=== PATIENT | male | born 1945 | race Caucasian/White ===

== ENCOUNTER 2016-11-19 18:36 | Emergency (ER) | payer MEDICARE, OTHER ==
[~2016-11-19] VITALS: Ht 185.4 cm; Wt 123.4 kg
[2016-11-19] MEDS: ACETAMINOPHEN 325 MG TABLET PO ONE (19:00)
[2016-11-19] MEDS ORDERED: VANCOMYCIN PER PHARMACY MC ONE (19:00)
[2016-11-19] MEDS ORDERED: TOBRAMYCIN PER PHARMACY MC ONE (19:15)
[2016-11-19 19:41] LABS: BGAS PH 7.44 (7.35-7.46)
[2016-11-19] MEDS ORDERED: CONTRAST GIVEN MC PRN (19:45)
[2016-11-19] MEDS: IV NORMAL SALINE 1,000ML 1,000 ML IV SCH ×2 (20:15→22:40)
[2016-11-19] MEDS: methylPREDNISolone SOD SUCC PF 125 MG/2 ML VIAL. IV ONE (20:15)
[2016-11-19] MEDS: IPRATRPIUM/ALBUTEROL 0.5/2.5MG 3 ML NEBU. NEB ONE (20:15)
[2016-11-19 20:32] LABS: BASO # 0.2 x10^3/uL (0.0-0.2); BASO % 1 % (0-3); EOS % 0 % (0-3); HEMATOCRIT 30.6 % (39.0-53.0); LYMPH # 0.9 x10^3/uL (1.0-4.8); LYMPH % 5 % (24-48); MEAN CORPUSCULAR HEMOGLOBIN 29 pg (25-35); MEAN CORPUSCULAR HGB CONC 33 g/dL (31-37); MEAN CORPUSCULAR VOLUME 88 fL (79-100); MONO # 1.2 x10^3/uL (0.0-1.1); MONO % 7 % (0-9); NEUT # 14.2 x10^3uL (1.8-7.7); NEUT % 86 % (31-73); PLATELET COUNT 514 x10^3/uL (140-400); RED BLOOD COUNT 3.48 x10^6/uL (4.30-5.70); RED CELL DISTRIBUTION WIDTH 14.7 % (11.5-14.5); WHITE BLOOD COUNT 16.5 x10^3/uL (4.0-11.0)
--- NOTE | 2016-11-19 20:41 | PHYS DOC ---
General Chief Complaint: POST-OP PROBLEM Stated Complaint: FEVER/ TACHYCARDIA Time Seen by MD: 18:38 Source: patient, family Exam Limitations: no limitations Problems: History of Present Illness Initial Comments Pt is 71/M to ED with spouse for post-op problem. Pt states he underwent left upper lobectomy at 11/03 for squamous cell carcinoma tumor removal and was d/c home 11/09. He finished a z-abdoul since hospital discharge and has been recuperating well. Pt/spouse state that pt began chills/sweats approximately 1500 today. He became diaphoretic, SOB, feeling palpitations so came for evaluation. ED vs: 102.5, 132, 92/47, 95% RA Pt cardiothoracic surgeon at Dr Gio Larose. Timing/Duration: 4-6 hours Severity: severe Modifying Factors: improves with other Associated Symptoms: cough, diaphoresis, fever/chills, headaches, loss of appetite, malaise, shortness of breath, weakness, other Allergies: Coded Allergies: ampicillin (Verified Allergy, Unknown, 11/19/16) egg (Verified Allergy, Unknown, 11/19/16) Past Medical History Medical History: other (squamous cell CA left lung, thoracic aortic aneurysm w/ o rupture, HTN, DM2, NORM, HLP, aortic aneurysm) Surgical History: other (Lingular sparing left upper lobectomy, video assisted thoracoscopy 11/03/16 at [facility] Dr Gio Larose) Social History Smoker: other Alcohol: other Drugs: none Review of Systems Constitutional: see HPI Respiratory: see HPI Cardiovascular: see HPI Gastrointestinal: denies abdominal pain, denies diarrhea, nausea, denies vomiting Genitourinary: denies dysuria, denies frequency, denies hematuria Musculoskeletal: denies back pain, denies joint swelling, denies neck pain Psychiatric/Neurological: denies numbness, denies paresthesia, denies weakness Physical Exam General Appearance: moderate distress, obese Eyes: bilateral eye normal inspection, bilateral eye PERRL, bilateral eye EOMI Ear, Nose, Throat: hearing grossly normal, normal ENT inspection, normal pharynx Neck: non-tender, supple Respiratory: other (coarse BS left lower lung field with fair to good air movement no respiratory distress) Cardiovascular: normal peripheral pulses, tachycardia Gastrointestinal: non tender, soft Back: no CVA tenderness, no vertebral tenderness Extremities: non-tender, normal inspection Neurologic/Psychiatric: 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 Chest AP: left effusion vs infiltrate, cardiomegaly Pertinent labs: WBC 16.5, Hb 10, plt 514, lactic acid 0.7 Blood, sputum, and left chest tube port wound cultures are all pending PATIENT: STACIE TERRAZAS ACCOUNT: [id number] : 1945 LOCATION: ER AGE: 71 SEX: M EXAM STATUS: REG ER ORD. PHYSICIAN: BERTA WINCHESTER DO REASON: Left partial lobectomy, short of air, chest pain, fever, tachy PROCEDURE: CT ANGIOGRAPHY CHEST CTA Chest with contrast: Clinical History: Fever, tachycardia, short of air, chest pain today. Hx: Small cell cancer-lung, Aortic aneurysm 2007, COPD, HTN, diabetic. No priors. Shortness of breath. Axial helical images of the chest were obtained after the administration of 75 cc of IV Omnipaque 300 and timed appropriately for a pulmonary arterial study. Conventional axial reconstruction was performed in addition to coronal, sagittal and bilateral oblique MIP (maximum intensity projection). This study was ordered to detect possible pulmonary embolism. There are tiny filling defects within subsegmental branches of the right lower lobe pulmonary artery. There is a small loculated pleural effusion on the left and there is a moderate enhancing left pericardial effusion. There is a 2.9 cm left hilar mass. The thoracic aorta appears normal. Impression: 1. Tiny pulmonary emboli, no significant clot burden. 2. Left hilar mass could be a pulmonary nodule or abnormal lymph node. 3. Loculated small left effusion likely a malignant effusion. 4. Enhancing pericardial effusion. Patient may be susceptible to cardiac tamponade. PQRS Compliance Statement: One or more of the following individualized dose reduction techniques were utilized for this examination: 1. Automated exposure control 2. Adjustment of the mA and/or kV according to patient size 3. Use of iterative reconstruction technique Electronically signed by: Umesh Britton III, MD (11/19/2016 9:41 PM) [facility] DICTATED AND SIGNED BY: UMESH BRITTON III, MD DATE: 11/19/162126 CC: DEAN PEREA; BERTA WINCHESTER DO ~ 2204: I discussed the patient with transfer RN. After thorough discussion she will call Dr Romo (who happens to be communications department head) and get back to me. 2220: Dr Larose accepts pt for local ALS ground transfer and ICU admission at . I asked if anticoagulation requested, not at this time. Keep NPO no new orders. ED COURSE: Patient is a 71-year-old male postop day #16 lingular sparing left upper lobectomy and video-assisted thoracoscopy for treatment of squamous cell lung cancer. He was discharged home on November 09 and was recuperating well at home until earlier today when he developed fever chills sweats and tachycardia. Unstable vital signs on arrival indicative of sepsis aggressive normal saline IV fluid bolus is initiated as well as vancomycin and tobramycin. Patient received DuoNeb, Solu-Medrol 125 mg IV. Labs fairly unremarkable white blood cell count 16,500 CTA of the chest revealed multiple tiny pulmonary emboli as well as a loculated left-sided pleural effusion and left hilar mass. Enhancing pericardial effusion rendering the patient suspect to tamponade also noted. I contacted the transfer team at and the patient's cardiothoracic surgeon Dr. Larose accepts the patient for ICU admission. No anticoagulation until cardiothoracic surgery evaluates the patient. No new orders we'll keep patient nothing by mouth. IMPRESSIONS; Sepsis Post-op infection Multiple PEs Loculated left pleural effusion (malignant) Enhancing pericardial effusion SCC Lung CA Departure Time of Disposition: 22:28 Disposition: 02 XFER SHT-TRM HOSP Diagnosis: sepsis, loculated effusion, SCC, pericardial effus Condition: IMPROVED Additional Instructions: EMS transfer (ALS) to [facility] for ICU admission Dr Larose is accepting. Critical Care Note Total Time (mins): 75 Comments Direct supervision of multiple fluid boluses for hemodynamically unstable patient. Test interpretation and transfer arrangements with constant monitoring the patient's vital signs and condition. BERTA WINCHESTER DO Nov 19, 2016 20:41
[2016-11-19 20:44] LABS: ALBUMIN 2.7 g/dL (3.4-5.0); DIRECT BILIRUBIN 0.3 mg/dL (0.0-0.2); MAGNESIUM 1.7 mg/dL (1.8-2.4); TOTAL BILIRUBIN 0.4 mg/dL (0.2-1.0); TOTAL PROTEIN 6.6 g/dL (6.4-8.2)
[2016-11-19 20:45] LABS: CLARITY,URINE HAZY; COLOR,URINE YELLOW
[2016-11-19] MEDS ORDERED: 0.9 % SODIUM CHLORIDE 10 ML DISP.SYRIN. IV PRN (20:45)
[2016-11-19] MEDS ORDERED: NOREPINEPHRINE BITARTRATE 8 MG in IV NORMAL SALINE 250ML 250 ML IV PRN (20:45)
[2016-11-19 20:46] LABS: GLUCOSE,URINE NEG (NEG)
[2016-11-19 20:48] LABS: BACTERIA,URINE 0 /HPF (0-FEW); BILIRUBIN,URINE NEG (NEG); NITRITE,URINE NEG (NEG); SQUAMOUS EPITHELIAL CELL,UR MOD /LPF; UROBILINOGEN,URINE 1 mg/dL (0.2 mg/dL); WBC,URINE OCC /HPF (0-4)
[2016-11-19 20:50] LABS: CALCIUM 8.5 mg/dL (8.5-10.1); CREATININE 1.1 mg/dL (0.7-1.3); GFR 66.4; POTASSIUM 4.5 mmol/L (3.5-5.1)
[2016-11-19] MEDS ORDERED: IV NORMAL SALINE 1,000ML 1,000 ML IV SCH (20:50)
[2016-11-19 20:53] LABS: HYALINE CASTS, URINE FEW /HPF
[2016-11-19 21:00] LABS: INFLUENZA A PATIENT NEGATIVE (NEGATIVE); INFLUENZA B PATIENT NEGATIVE (NEGATIVE)
[2016-11-19] MEDS: IOHEXOL 300 MG/ML 75 ML VIAL. IV ONE (21:02)
--- NOTE | 2016-11-19 21:44 | RAD ---
CTA Chest with contrast: Clinical History: Fever, tachycardia, short of air, chest pain today. Hx: Small cell cancer-lung, Aortic aneurysm 2007, COPD, HTN, diabetic. No priors. Shortness of breath. Axial helical images of the chest were obtained after the administration of 75 cc of IV Omnipaque 300 and timed appropriately for a pulmonary arterial study. Conventional axial reconstruction was performed in addition to coronal, sagittal and bilateral oblique MIP (maximum intensity projection). This study was ordered to detect possible pulmonary embolism. There are tiny filling defects within subsegmental branches of the right lower lobe pulmonary artery. There is a small loculated pleural effusion on the left and there is a moderate enhancing left pericardial effusion. There is a 2.9 cm left hilar mass. The thoracic aorta appears normal. Impression: 1. Tiny pulmonary emboli, no significant clot burden. 2. Left hilar mass could be a pulmonary nodule or abnormal lymph node. 3. Loculated small left effusion likely a malignant effusion. 4. Enhancing pericardial effusion. Patient may be susceptible to cardiac tamponade. RS Compliance Statement: One or more of the following individualized dose reduction techniques were utilized for this examination: 1. Automated exposure control 2. Adjustment of the mA and/or kV according to patient size 3. Use of iterative reconstruction technique Electronically signed by: Rbuen Weiss III, MD (11/19/2016 9:41 PM) [facility]
[2016-11-19] MEDS ORDERED: IV NORMAL SALINE 500ML 500 ML ONE (21:52)
[2016-11-19] MEDS ORDERED: VANCOMYCIN 1 GM VIAL. ONE (21:52)
[2016-11-19] MEDS: VANCOMYCIN 2 GM in IV NORMAL SALINE 500ML 500 ML IV ONE (22:00)
[2016-11-19] MEDS: NORMAL SALINE IV ONE (22:40)
[2016-11-19] MEDS: TOBRAMYCIN SULFATE IV ONE (22:40)
[2016-11-19 22:46] LABS: % LYMPHS 6 % (24-48); % MONOS 10 % (0-10); % SEGS 84 % (35-66)
[2016-11-19 22:47] LABS: PLT ESTIMATE INCREASED (ADEQUATE)
[2016-11-19 22:48] LABS: OVALOCYTES FEW
[2016-11-19 23:24] VITALS: BP 98/53
--- NOTE | 2016-11-20 08:29 | RAD ---
Exam performed: One view chest. History: Chest pain, shortness of air and fever, partial left lobectomy. Date of service: 11/19/16. Comparison: None available Single view chest findings: Mild cardiomegaly. There is hazy opacification of the left mid and lower lung which revealed combination of infiltrate/mass with small effusion. The right lung is clear. There is no pneumothorax. Impression: Hazy opacification left mid and lower lung with small left pleural effusion.
--- NOTE | 2016-11-20 15:03 | EKG ---
[address] [address] Test Date: 2016-11-19 Test Time: 18:44:15 Pat Name: STACIE TERRAZAS Department: Room: Gender: M Rn Radiation: BRANDON : 1945 Requested By: BERTA WINCHESTER Order Number: [id number] Reading MD: Haris Last Measurements Intervals [place] Rate: 133 P: -3 MA: 156 QRS: 66 QRSD: 72 T: 48 QT: 274 QTc: 409 Interpretive Statements SINUS TACHYCARDIA Electronically Signed On 11-21-2016 9:32:33 CDT by Haris Last
== END 2016-11-19 23:45 | disposition short-term general hospital (02) ==
LOC: ER 18:36
DX: A41.9 Sepsis, unspecified organism (principal); I31.3 Pericardial effusion (noninflammatory); J90 Pleural effusion, not elsewhere classified; E11.9 Type 2 diabetes mellitus without complications; I10 Essential (primary) hypertension; J44.9 Chronic obstructive pulmonary disease, unspecified; E78.5 Hyperlipidemia, unspecified; G47.33 Obstructive sleep apnea (adult) (pediatric); Z90.2 Acquired absence of lung [part of]; Z88.1 Allergy status to other antibiotic agents; Z91.012 Allergy to eggs
CPT/HCPCS: 36415; 36600; 71010; 71275; 80048; 80076; 81001; 82550; 82803; 83605; 83690; 83735; 83880; 84484; 85007; 85025; 87040; 87070; 87071; 87075; 87205; 87804; 93005; 96361; 96365; 96366; 96367; 96375; 99291; 99292; J2930; J3370; J7040; J7620; Q9967; J7030

== ENCOUNTER → 2020-05-31 | Outpatient (CLI) | payer MEDICARE, OTHER ==
--- NOTE | 2020-05-31 15:04 | RAD ---
EXAM: Bilateral knees, 3 views. HISTORY: Pain. COMPARISON: None. FINDINGS: 3 views of both knees are obtained. There is bilateral medial compartment joint space narro wing, subchondral sclerosis and spurring. There is bilateral lateral and patellofemoral compartment s purring. There is mild bilateral genu varus. There is a small right knee effusion. There is a 3 mm ra diodense foreign body overlying the anterior distal right thigh. There are suspected right knee joint loose bodies and there is a left knee intra-articular osteophyte. IMPRESSION: 1. 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 2. Small right knee effusion and suspected right knee joint loose bodies. Electronically signed by: Kathy Peres MD (05/31/2020 3:01 PM) [id number]
== END ==
LOC: RAD 13:53
PROVIDERS: ATTEND Physician Assistant
DX: M17.0 Bilateral primary osteoarthritis of knee (principal); M25.461 Effusion, right knee
CPT/HCPCS: 73560; 73565

== ENCOUNTER → 2021-05-23 | Outpatient (CLI) | payer MEDICARE, OTHER ==
--- NOTE | 2021-05-23 18:02 | RAD ---
Exam: XR SHOULDER_LEFT 2+ VIEWS History: Pain Comparison: None. Findings: Osseous mineralization is normal. No acute fracture or dislocaton. Degenerative changes of the glenoh umeral and acromioclavicular joints. Cystic changes at the footprint insertion of the rotator cuff. M ultiple chain sutures in the left upper lung. Impression: 1. Degenerative changes of the left shoulder without acute osseous abnormality. Electronically signed by: Nasim Iniguez MD (05/23/2021 6:00 PM) [id number]
== END ==
LOC: RAD 14:18
PROVIDERS: ATTEND Physician Assistant
DX: M19.012 Primary osteoarthritis, left shoulder (principal); M25.812 Other specified joint disorders, left shoulder
CPT/HCPCS: 73030